=== PATIENT | male | born 2005 | race Caucasian/White ===

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

== ENCOUNTER → 2024-03-13 | Outpatient (CLI) | payer BC, SELFPAY ==
--- NOTE | 2024-03-13 17:00 | RAD_ITS ---
STUDY: X-RAY - RIGHT WRIST REASON FOR EXAM: Male, 19 years old. PAIN TECHNIQUE: 3 views of the right wrist were obtained. COMPARISON: Right wrist radiographs dated 06/04/2023. FINDINGS: Normal visualized distal radius and ulna. Normal radiocarpal articulation. Normal distal radioulnar articulation. Normal carpal bones. Normal carpal articulations. Normal carpometacarpal articulation of the thumb. Normal second through fifth carpometacarpal articulations. Normal visualized metacarpal bones. The soft tissue structures are unremarkable. The previously seen soft tissue prominence over the dorsum of the wrist is no longer present. There is no demonstrated acute fracture. RAD/Wrist min 3 Views IMPRESSION: Normal x-ray examination of the right wrist. Previously seen soft tissue prominence over the dorsum of the wrist is no longer present. Electronically Signed: Matt Murry MD at 8:25 EDT ,
== END | disposition home or self-care (01) ==
LOC: MTRAD 16:58
PROVIDERS: PCP Family Medicine; Referring Provider Family Medicine; Visit Provider Family Medicine
DX: M25.531 Pain in right wrist (principal)
CPT/HCPCS: 73110

== ENCOUNTER → 2024-04-22 | Outpatient (CLI) | payer BC, SELFPAY | END | disposition home or self-care (01) | PROVIDERS: PCP Family Medicine; Referring Provider Surgery Plastic and Reconstructive Surgery; Visit Provider Surgery Plastic and Reconstructive Surgery | DX: M25.831 Other specified joint disorders, right wrist (principal) | CPT/HCPCS: 76882 ==

== ENCOUNTER 2024-11-29 10:23 | Outpatient (RCR) | payer SELFPAY ==
--- NOTE | 2024-11-29 10:55 | HP.PTEVAL ---
Patient's Visit Information Visit Information Visit Information: DORA GARCIA is a 19 year old M referred to Physical Therapy by JAVIER Wilcox with a diagnosis of BPV. Date of Evaluation: 11/29/24 Physical Therapist: Jacob Rodríguez, CHRISTIANNET, OCS, CSCS Visit Plan Frequency: 1x/Week Duration: 2-4 Weeks Plan: weekly as needed to check positional and for recurrences and treat with vestibular if needed. Unlikely more visits will be needed.Pt to call if worsens prior. Subjective Subjective: Wednesday night started spinning. noticed it in the hot tub. Spinning and nauseaous so got out and went to bed. all night and morning same thing. last night better and today good. Head movements R made him worse. [facility] y[facility] and this morning was better. today can walk without leaning on something. Feels pretty good almost normal, still a little lightheadedness, not nauseous, no spinning since yesterday morning getting out of bed. Gave meds at [facility] for motion sickness. 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 Will go back tomorrow. Hobbies; video games adn sports, has not felt like it. Will play video games. Basic ADL all I. 99% better than yesterday Objective Objective: Walks into PT I and normal, normal and I transfers and good FGA today. He says much better than yesterday. Full cervical aROM without hesitation. Full UE AROM and good sensation in UE. - B hallpike hetal, - roll test. Oculomotor is good today: no nystagmus with gaze or head shake - head thrust - ocular tilt - skew eye deviation normal pursuit and saccades and no symptoms today with these or position changes. Balance/Special Test Scores Functional Gait Assessment Score: 30 % Disability: 0 CATSIB Score (Max score 120 seconds): 120 Dizziness Score: 22 Goals Goal 1:: dizzin ess abolished for one week. Goal Time Frame: 2-4 Weeks Goal 2:: Pt feel 100% back to normal Goal Time Frame: 2-4 Weeks Rehabilitation Potential Physical Therapy Diagnosis: Normal presentation vestibular henning today Rehabilitation Potential: Good Anticipated Interventions Patient/Client Instruction: Educate patient on: Condition For the Purpose of:: To increase tolerance to activity/condition/position Comment: vestibular For the Purpose of:: To increase tolerance to activity/condition/position Text: Thank you for the opportunity to evaluate your patient. For Medicare and Medicare HMO plans, please review the plan of care and approve it. It will need to be FAXED BACK to us at [phone] for Medicare purposes. For Medicare only, by signing this I certify the plan of care. Please let me know if there are questions or concerns regarding this plan of care. Physician Signature: Date:
--- NOTE | 2025-01-17 15:44 | HP.PT.NRP ---
Patient Information Patient Information: DORA GARCIA was seen in my office for initial evaluation on 11/29/24. The following Plan of Care was established for this patient: POC Established Initial Frequency: 1x/Week Initial Duration: 2-4 Weeks Anticipated Interventions Patient/Client Instruction: Educate patient on: Condition For the Purpose of:: To increase tolerance to activity/condition/position For the Purpose of:: To increase tolerance to activity/condition/position Last Seen Last Seen: This patient was last seen in our office 11/29/24. Pertinent comments regarding their Physical therapy will appear below: Pt seen for IE and POC established mostly to monitor as he was not symptomatic [place] [facility] [place] not schedule or return for any visits and it has been over 6 weeks. I will discontinue from my care. At this point I will be discontinuing this patient from physical therapy. I would be happy to see this patient again in the future if found appropriate by the physician. Thank you! Jacob Rodríguez, DPT, OCS, CSCS Balance/Gait/Functional tests Balance/Special Test Scores Functional Gait Assessment Score: 30 % Disability: 0 CATSIB Score (Max score 120 seconds): 120 Dizziness Score: 22
== END 2024-11-29 19:00 | disposition home or self-care (01) ==
LOC: PT 10:23
PROVIDERS: PCP Family Medicine; Referring Provider Physician Assistant; Visit Provider Physician Assistant
DX: H81.10 Benign paroxysmal vertigo, unspecified ear (principal)
CPT/HCPCS: 97161